=== PATIENT | female | born 1990 | race Caucasian/White ===

== ENCOUNTER 2021-02-26 08:02 | Day surgery (SDC) | payer OTHER ==
[~2021-02-26] VITALS: Ht 162.6 cm; Wt 72.7 kg
--- NOTE | ~2021-02-26 | OP ---
PATIENT NAME: DUNCAN STRATTON MEDICAL RECORD: [id number] :89 [facility]: SURGEON: SORAYA VENTURA MD DATE OF OPERATION: 02/26/2021 PREOPERATIVE DIAGNOSIS: in progress/incomplete . POSTOPERATIVE DIAGNOSIS: in progress/incomplete . PROCEDURE: Suction dilation and curettage. ANESTHESIA: General. IV FLUID: Per anesthesia record. SPECIMENS: Included endometrial curettings/products of conception. FINDINGS: 1. Grossly normal-appearing external genitalia and open cervix. 2. Obvious return of products of conception on suction and C. COMPLICATIONS: None apparent. ESTIMATED BLOOD LOSS: 100 cc. DESCRIPTION OF PROCEDURE: The patient was taken to the operating room where general anesthesia was achieved without difficulty. The patient was then prepped and draped in normal sterile fashion in the dorsal lithotomy position in the [facility]. At this point, the patient was prepped and draped and the bladder was drained of approximately 50 cc of clear yellow urine. At this point, a speculum was placed into the vagina and the cervix was grasped on its anterior lip with a single tooth tenaculum. The patient was found to be significantly dilated and the patient was further dilated to approximately 9 mm. At this point, an 8 mm straight suction curette was placed into the uterus without difficulty and visual return of products of conception was noted. Three passes were performed and then #1 curette was used to gently feel and for any further products of conception, gentle curettage was performed with return of several small pieces of products of conception. A last pass was performed with the #8 suction curette with minimal return of blood or products of conception. Hemostasis was noted to be well controlled and a single tooth tenaculum was removed. No bleeding from the tenaculum site was noted. Speculum was removed and the patient was transferred to postanesthesia recovery stable without incident. TRANSINT:[id number] Voice Confirmation ID: [id number] DOCUMENT ID: [id number] SORAYA VENTURA MD CC: [id number] DICTATION DATE: 03/24/21516 INDUCTION COORDINATION ENGINEER: 03/24/21 0734 [facility] 02/26/21 [id number] [place] [address]
[2021-02-26 08:31] LABS: BASOPHILS 0.1 % (0-2); EOSINOPHILS 0 % (0-7); HEMATOCRIT 29.4 % (36.0-48.0); IMMATURE GRANULOCYTES 0.1 % (0-5); LYMPHOCYTE ABS# 1.89 10x3/uL (1.18-3.74); LYMPHOCYTES 13.6 % (15-50); MCH 24.6 pg (26.0-34.0); MCHC 30.6 g/dL (31.0-37.0); MCV 80.3 fL (80.0-100.0); MEAN PLATELET VOLUME 8.5 fL (7.4-10.4); MONOCYTES 5.5 % (2-11); NEUTROPHIL ABS# 11.23 10x3/uL (1.56-6.13); NEUTROPHILS 80.7 % (40-80); PLATELET COUNT 377 10x3/uL (130-400); RBC 3.66 10x6/uL (4.00-5.40); RDW 13.6 % (11.5-14.5); WBC 13.9 10x3/uL (4.8-10.8)
[2021-02-26 08:43] LABS: CALC OSMOLALITY 273 mosm/kg (275-300); CALCIUM 9.4 mg/dL (8.5-10.1); CARBON DIOXIDE 23.6 mmol/L (21.0-32.0); CHLORIDE - SERUM 101 mmol/L (98-107); CREATININE - SERUM 0.9 mg/dL (0.6-1.3); GLUCOSE 123 mg/dL (74-106); POTASSIUM - SERUM 3.6 mmol/L (3.5-5.1); SODIUM 136 mmol/L (136-145); UREA NITROGEN 14 mg/dL (7-18); eGFR NON AFRICAN AMERICAN 77 mL/min (90-120)
[2021-02-26 08:54] LABS: ALKALINE PHOSPHATASE 70 U/L (30-120); ALT (SGPT) 18 U/L (10-68); BILIRUBIN - TOTAL 0.35 mg/dL (0.2-1.3); HCG - QUANTITATIVE (MATERNAL) 23 mIU/mL; HCG SERUM POSITIVE (NEGATIVE); PROTEIN - SERUM 7.6 g/dL (6.4-8.2)
[2021-02-26 09:32] LABS: BILIRUBIN NEGATIVE (NEGATIVE); KETONE SMALL mg/dL (NEGATIVE); NITRITE NEGATIVE (NEGATIVE)
[2021-02-26 09:34] LABS: BACTERIA FEW HPF (NONE SEEN); SQUAMOUS EPITHELIAL RARE HPF (0-4); WHITE CELLS - URINE RARE HPF (0-4)
--- NOTE | 2021-02-26 12:33 | NUR ---
OPA IN AIRWAY ON ADMIT
--- NOTE | 2021-02-26 12:40 | NUR ---
DR VENTURA CALLS. ORDER RECEIVED TO TRANSFUSE ONE UNIT PACKED RBC'S.
--- NOTE | 2021-02-26 12:50 | NUR ---
ROOM CHANGE @[id number] WAITING ON CLEANING
[2021-02-26 13:16] VITALS: BP 96/60
[2021-02-26 13:19] VITALS: Ht 162.6 cm; Wt 72.7 kg
--- NOTE | 2021-02-26 13:23 | NUR ---
RECEIVED BY BED FROM RECOVERY ROOM, PT IS AWAKE AND ALERT, RATES PAIN AT 0/10. VSS CHARTED TO FLOWSHEET. IV TO L FOREARM INFUSING NS AT 125ML/HR VIA PUMP. DENIES NAUSEA AND REQUEST DR PEPPER TO DRINK. SIDE RAILS UP X 2 WITH CALL LIGHT IN REACH.
--- NOTE | 2021-02-26 13:45 | NUR ---
PT UP TO VOID WITH LITTLE ASSISTANCE NEEDED. LARGE CUP OF ICE WITH DR GARAY PROVIDED REQUESTED. DICTAPHONE MECHANIC AT BEDSIDE FOR BLOOD DRAW.
[2021-02-26 15:50] VITALS: BP 103/61
--- NOTE | 2021-02-26 15:50 | NUR ---
1ST UNIT OF PRBC VERIFIED AT BEDSIDE WITH Jacklyn GREEN RN. STARTED AT 75ML/HR FOR INITIAL 50CC, THIS RN REMAINS AT BEDSIDE.
--- NOTE | 2021-02-26 16:08 | NUR ---
PT DENIES PAIN OR DISCOMFORT. VSS. TRANSFUSION RATE INCREASED TO 200ML/HR. CALL LIGHT IN REACH WITH SIDE RAILS UP X 2.
--- NOTE | 2021-02-26 16:38 | NUR ---
PT TALKING WITH FRIEND AT BEDSIDE. DENIES PAIN OR DISCOMFORT. VSS. LARGE CUP OF ICE WATER PROVIDED REQUESTED. TRANSFUSION CONTINUE TO INFUSE VIA PUMP. CALL LIGHT IN REACH.
--- NOTE | 2021-02-26 17:30 | NUR ---
TRANSFUSION COMPLETED AND FLUSH STARTED. PT RATES PAIN AT 0/10. VERIFIED WITH DR VENTURA ABOUT DIET, DIETARY CALLED FOR REGULAR DIET TRAY.
--- NOTE | 2021-02-26 17:40 | NUR ---
FLUSH COMPLETED, IV SALINE LOCKED. PT UP TO VOID PER HERSELF WITHOUT COMPLAINTS.
--- NOTE | 2021-02-26 18:23 | NUR ---
CBC DRAWN PER THIS RN. PT SITTING UP IN BED LAUGHING WITH FRIEND AT BEDSIDE. RATES PAIN AT 0/10.
[2021-02-26 18:40] LABS: BASOPHILS 0 % (0-2); EOSINOPHILS 0 % (0-7); HEMOGLOBIN 8.5 g/dL (12-16); LYMPHOCYTES 9.3 % (15-50); MCH 25.3 pg (26.0-34.0); MCHC 31.5 g/dL (31.0-37.0); MCV 80.4 fL (80.0-100.0); MEAN PLATELET VOLUME 8.9 fL (7.4-10.4); MONOCYTES 0.3 % (2-11); NEUTROPHIL ABS# 5.85 10x3/uL (1.56-6.13); NEUTROPHILS 90.4 % (40-80); RBC 3.36 10x6/uL (4.00-5.40); RDW 13.7 % (11.5-14.5)
[2021-02-26 18:41] LABS: PLATELET COUNT 293 10x3/uL (130-400); WBC 6.5 10x3/uL (4.8-10.8)
--- NOTE | 2021-02-26 19:05 | NUR ---
CBC RESULTS REPORTED TO DR VENTURA AT THIS TIME. NEW ORDERS NOTED TO DISCHARGE PT TO HOME TO FOLLOW UP WITH THE CLINIC ON WEDNESDAY. PT MAY TAKE MOTRIN DIRECTED ON THE BOTTLE FOR PAIN.
--- NOTE | 2021-02-26 19:14 | NUR ---
DISCHARGE INSTRUCTIONS PROVIDED TO PATIENT AT THIS TIME. PT VERBALIZES UNDERSTANDING AND WILL CALL THE CLINIC TOMORROW TO MAKE A FOLLOW UP APPT FOR WEDNESDAY. IV D/C'D WITHOUT COMPLICATIONS.
--- NOTE | 2021-02-26 19:25 | NUR ---
PT LEAVING AMBULATORY TO HOME IN STABLE CONDITION WITH HER FRIEND.
== END 2021-02-26 19:30 | disposition home or self-care (01) ==
LOC: D.ER 08:02 → D.OPS 08:02 → EDSTATUS 10:48 → D.LD 12:35 → D.OPS 19:30
PROVIDERS: Family Medicine; ATTEND Obstetrics & Gynecology
DX: O03.4 Incomplete spontaneous abortion without complication (principal)

== ENCOUNTER → 2021-05-08 13:36 | Outpatient (CLI) | payer OTHER ==
[2021-02-26 13:19] VITALS: BMI 27.5
[~2021-05-08 13:36] MED LIST: SPRINTEC 28 DA1 EAC1
[2021-05-08 13:40] LABS: BASOPHILS 0.5 % (0-2); EOSINOPHILS 1.3 % (0-7); HEMATOCRIT 28.3 % (36.0-48.0); HEMOGLOBIN 8.6 g/dL (12-16); LYMPHOCYTES 26.2 % (15-50); MCHC 30.6 g/dL (31.0-37.0); MCV 63.4 fL (80.0-100.0); MEAN PLATELET VOLUME 7.6 fL (7.4-10.4); MONOCYTES 5.8 % (2-11); NEUTROPHILS 66.2 % (40-80); RBC 4.46 10x6/uL (4.00-5.40); RDW 18.4 % (11.5-14.5); WBC 9.1 10x3/uL (4.8-10.8)
[2021-05-08 13:41] LABS: MCH 19.4 pg (26.0-34.0); PLATELET COUNT 361 10x3/uL (130-400)
== END | disposition home or self-care (01) ==
LOC: D.LABREF 13:36
PROVIDERS: ATTEND Obstetrics & Gynecology
DX: N92.0 Excessive and frequent menstruation with regular cycle (principal)

== ENCOUNTER 2021-05-09 11:11 | Observation (INO) | payer OTHER ==
[2021-05-09] VITALS (9 sets, daily range): BP systolic 93–111; BP diastolic 55–64
[~2021-05-09] VITALS: Ht 162.6 cm; Wt 67.3 kg
[2021-05-09 12:32] LABS: BASOPHILS 0.7 % (0-2); EOSINOPHILS 2.2 % (0-7); HEMATOCRIT 28.1 % (36.0-48.0); HEMOGLOBIN 8.7 g/dL (12-16); MCHC 30.7 g/dL (31.0-37.0); MCV 63.1 fL (80.0-100.0); MEAN PLATELET VOLUME 7.2 fL (7.4-10.4); NEUTROPHILS 58.1 % (40-80); PLATELET COUNT 365 10x3/uL (130-400); RBC 4.46 10x6/uL (4.00-5.40); RDW 18.4 % (11.5-14.5); WBC 7.5 10x3/uL (4.8-10.8)
[2021-05-09 12:34] LABS: MCH 19.4 pg (26.0-34.0)
[2021-05-09 12:47] LABS: CALC OSMOLALITY 275 mosm/kg (275-300); CALCIUM 8.6 mg/dL (8.5-10.1); CHLORIDE - SERUM 104 mmol/L (98-107); CREATININE - SERUM 0.7 mg/dL (0.6-1.3); GLUCOSE 87 mg/dL (74-106); POTASSIUM - SERUM 3.8 mmol/L (3.5-5.1); SODIUM 138 mmol/L (136-145); UREA NITROGEN 15 mg/dL (7-18); eGFR NON AFRICAN AMERICAN > 90 mL/min (90-120)
[2021-05-09 13:08] LABS: APTT 25.1 SECONDS (22.8-39.4); INR 1.05 (0.85-1.17); PROTIME 12.7 SECONDS (11.6-15.0)
--- NOTE | 2021-05-09 15:14 | NUR ---
PT RECEIVED BY WHEELCHAIR FROM ER. TO BATHROOM WITHOUT COMPLAINT OF DIZZINESS OR NAUSEA. DR VENTURA PAGED REQUESTED.
--- NOTE | 2021-05-09 15:20 | NUR ---
ER ADMISSION CALLED TO TRANSFER PT TO LD ROOM.
--- NOTE | 2021-05-09 15:21 | NUR ---
DR VENTURA AT BEDSIDE TALKING WITH PT ABOUT PLAN OF CARE AND WHAT SHE COULD EXPECT.
[2021-05-09] MEDS ORDERED: SPRINTEC 28 DA1 EAC1 (15:57)
--- NOTE | 2021-05-09 15:58 | NUR ---
SURGERY, ANESTHESIA AND BLOOD CONSENTS SIGNED AND WITNESSED. PT DENIES ANY ALLERGIES AND STATES "I TAKE CONTROL PILL AT NIGHT" RATES PAIN AT 2/10 AT THIS TIME, BUT APPEARS TEARFUL, FRIEND REMAINS AT BEDSIDE.
--- NOTE | 2021-05-09 16:08 | NUR ---
PREOP MEDS OF REGLAN AND PEPCID GIVEN IVP ORDERED BY ANESTHESIA, SEE EMAR.
--- NOTE | 2021-05-09 16:10 | NUR ---
OR STRETCH MACHINE OPERATOR TO ROOM, PT TAKEN TO SURGERY BY BED.
--- NOTE | 2021-05-09 16:15 | NUR ---
DR VENTURA CALLED FOR ORDERS. REPORT THAT PT DENIES PAIN AND NO NAUSEA, SHE HAS EATEN REGULAR DIET BUT HAS NOT VOIDED. MAY D/C HOME OR STAY AND SPEAK TO MD JACE DO. MD ASK THAT HE BE NOTIFIED OF HER DECISION.
--- NOTE | 2021-05-09 17:30 | NUR ---
RECEIVED TO ROOM BY BED FROM RECOVERY. SHE IS AWAKE AND ALERT, RATES PAIN AT 0/10 STATES "I'M JUST HUNGRY" DR VENTURA SPOKE WITH HER PRIOR TO SURGERY AND SHE WAS TOLD OK TO EAT WHEN SHE GOT BACK TO HER ROOM, DENIES NAUSEA AT THIS TIME. VSS. SHE IS ABLE TO SIT HER SELF UP IN BED, LARGE CUP OF ICE REQUESTED. HER FRIEND HAS HER SOMETHING TO EAT AND DRINK. CALL LIGHT IN REACH.
--- NOTE | 2021-05-09 18:38 | NUR ---
LARGE CUP OF ICE WATER AND SMALL CUP ICE REQUESTED. EXPLAINED TO PT THAT MD WOULD NOT BE BACK ON UNIT UNTIL LATER TONIGHT AND IF SHE WISHES TO STAY THAT IS NOT A PROBLEM OR SHE CAN DISCHARGE HOME, AND WILL HAVE FOLLOW UP AT CLINIC IN 1-2 WEEKS. TALKING WITH HER FRIEND/FAMILY MEMBER AND WILL NOTIFY NURSE.
--- NOTE | 2021-05-09 19:30 | NUR ---
PAGED DR. VENTURA CONCERNING PT.'S REQUEST TO DISCHARGE. DR. VENTURA RETURNS PAGE. SEE NOTES.
--- NOTE | 2021-05-09 20:00 | NUR ---
1ST UNIT OF PRBC'S PICKED UP BY Denia JONES RN. TO PT.'S BEDSIDE. DISCUSSED SIGNS AND SYMPTOMS OF ALLERGIC REACTION TO BLOOD TRANSFUSION. Denia JONES RN AND Sharla ZHANG RN PERFORM VERIFICATION OF BLOOD PRIOR TO STARTING INFUSION. ALL ARE MATCHING. PT. DENIES ALLERGIES OF ANY KIND. THIS RN REMAINS AT BEDSIDE FOR THE FIRST 5 MINUTES OF INFUSION AND PT. DENIES ANY REACTION AT THIS TIME. CALL LIGHT IN REACH. INSTRUCTED PT. TO CALL ME IMMEDIATELY IF SHE STARTS FEELING ANYTHING AND THAT I WILL BE BACK IN 15 MINUTES TO GET ANOTHER SET OF VITALS.
--- NOTE | 2021-05-09 20:47 | NUR ---
pt. press set up person light. upon entering room pt. reports "I USED THE BATHROOM AGAIN". 300 MLS CLEAR YELLOW URINE EMPTIED FROM NUNS CAP. PT. DENIES ANY FURTHER NEEDS AT THIS TIME. INSTRUCTED PT. THAT SINCE SHE IS RECEIVING BLOOD I WOULD RATHER HER CALL FOR ASSISTANCE UP TO THE BATHROOM. PT. VERBALIZES UNDERSTANDING. WILL CONT. TO MONITOR.
--- NOTE | 2021-05-09 21:00 | NUR ---
PT. CONTINUES TO DENY ANY TYPE OF REACTION TO BLOOD TRANSFUSION. INCREASED 1ST UNIT PRBC'S TO 175 ML/HR. WILL CONT. TO MONITOR.
--- NOTE | 2021-05-09 21:31 | NUR ---
ASSISTED PT. UP TO BATHROOM AT THIS TIME.
--- NOTE | 2021-05-09 21:42 | NUR ---
1 UNIT OF PRBC'S COMPLETED. CLAMPED IV TUBING TO BLOOD AND OPENED NS SIDE. NS INFUSING AT 175 ML/HR FOR 100 ML BOLUS TO CLEAR IV TUBING LINE. VITALS TAKEN. SEE GRAPH.
--- NOTE | 2021-05-09 22:00 | NUR ---
NEW BLOOD TRANSFUSION TUBING PLACED AND NS RUNNING AT 50 ML/HR
--- NOTE | 2021-05-09 22:03 | NUR ---
PAGED DR. VENTURA AT PT.'S REQUEST FOR ORDERS FOR "SOMETHING TO HELP ME SLEEP"
--- NOTE | 2021-05-09 22:18 | NUR ---
DR. VENTURA CALLS UNIT. REPORT GIVEN OF PT.'S REQUEST OF FOR "SOMETHING TO HELP HER SLEEP". ORDERS REC.
--- NOTE | 2021-05-09 22:30 | NUR ---
Denia JONES RN AND Sharla ZHANG RN VERIFY 2ND UNIT OF PRBC'S AT PT.'S BEDSIDE. 20 G. IV CATH IN RIGHT HAND INFUSING WITHOUT DIFFICULTY AND WITH NO PAIN PER PT.
--- NOTE | 2021-05-09 22:31 | NUR ---
2nd UNIT OF PRBC'S INITIATED AT 125 ML/HR PER MD ORDERS. THIS RN REMAINS AT BEDSIDE.
--- NOTE | 2021-05-09 22:32 | NUR ---
AMBIEN 5 MG (1) TABLET ADMINISTERED PER MD ORDERS AND PT.'S REQUEST FOR SOMETHING TO HELP HER SLEEP.
--- NOTE | 2021-05-09 22:44 | NUR ---
PT. CONTINUES TO DENY ANY SIGNS OR SYMPTOMS OF BLOOD TRANSFUSION REACTION. 2ND UNIT INCREASED TO 150 ML/HR. INSTRUCTED PT. TO CALL FOR ANY ISSUES. CALL LIGHT WITHIN REACH. SIDE RAILS UP X 2. WILL CONT. TO MONITOR.
--- NOTE | 2021-05-09 23:22 | NUR ---
PT. MEDICATED WITH NORCO 10/325 MG 1 TAB AND MOTRIN 600 MG 1 TAB FOR "CRAMPING" THAT PT. RATES AT "2" ON 0-10 SCALE. NO VAGINAL BLEEDING NOTED AT THIS TIME. INSTRUCTED PT. TO NOT GET UP TO BATHROOM WITHOUT MY ASSISTANCE DUE TO HER BP BEING LOW. PT. VERBALIZES UNDERSTANDING. PT. CONTINUES TO DENY ANY SIGNS OF SYMPTOMS OF BLOOD TRANSFUSION REACTION. UPON PT. ROLLING AROUND IN BED TO GET COMFORTABLE, PT.'S PULSE GOES UP TO 68 BUT SLOWS SOON SHE GETS STILL. WILL CONT. TO MONITOR.
--- NOTE | 2021-05-10 00:19 | NUR ---
PT. RESTING WITH EYES CLOSED IN RIGHT SIDE LYING POSITION. NO SIGNS OF DISTRESS NOTED. RESP. ARE EVEN AND UNLABORED. WILL CONT. TO MONITOR. 2ND UNIT OF PRBC'S ALMOST COMPLETE.
--- NOTE | 2021-05-10 00:30 | NUR ---
2ND UNIT OF PRBC'S COMPLETED. VITALS TAKEN AND STABLE. INSTRUCTED PT. THAT SHE STILL NEEDS TO CALL BEFORE GETTING UP AND THAT I NEED TO LEAVE HER PULSE OX ON FOR NOW. PT. VERBALIZES UNDERSTANDING. BLOOD CLAMPED AND NS UNCLAMPED AND SET FOR 100 MLS TO FINISH WHAT IS IN IV TUBING.
--- NOTE | 2021-05-10 00:55 | NUR ---
PT. REPORTS "I THINK I'LL GO AHEAD AND GO SINCE YOU'RE IN HERE" WHEN ASKED IF SHE NEEDS TO USE THE RESTROOM. 20 G. IV IN RIGHT HAND SALINE LOCKED AT THIS TIME. PT. UP OUT OF BED QUICKLY. PT. VOIDED 400 MLS PALE YELLOW URINE INTO NUNS CAP. EMPTIED AND REPLACED AT THIS TIME. INSTRUCTED PT. THAT I WILL NEED HER TO CONTINUE TO KEEP HER PULSE OX ON. PT. VERBALIZES UNDERSTANDING. DENIES ANY QUESTIONS OR CONCERNS AT THIS TIME. WILL CONT. TO MONITOR.
[2021-05-10 03:30] VITALS: BP 99/55
--- NOTE | 2021-05-10 03:30 | NUR ---
PT. AWAKENS EASILY WITH VERBAL STIMULATION. VITALS TAKEN AND STABLE. PT. REPORTS "SOME MILD CRAMPING" AND RATES PAIN AT "4" ON 0-10 SCALE "EVERY NOW AND THEN". NORCO 10/325 MG 1 TAB ADMINISTERED ORALLY PER MD ORDERS AND PT. REPORT OF PAIN. INQUIRED WITH PT. IF THERE IS ANYTHING I CAN BRING HER AND PT. REPORTS "NO, IM OK, JUST TIRED". INSTRUCTED PT. TO CALL IF SHE NEEDS ANYTHING AND I WILL CHECK BACK LATER BUT THAT IF SHE IS SLEEPING AT THAT TIME THEN I WILL LEAVE HER BE. PT. VERBALIZES UNDERSTANDING AND DENIES FURTHER QUESTIONS OR CONCERNS. WILL CONT. TO MONITOR.
--- NOTE | 2021-05-10 06:05 | NUR ---
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 250 mls clear yellow urine emptied from nuns cap. pt. denies pain or needs at this time. Will cont. to monitor.
[2021-05-10 07:30] VITALS: BP 105/72
--- NOTE | 2021-05-10 07:30 | NUR ---
PATIENT ASSESSMENT COMPLETED AT BEDSIDE. PATIENT DENIES PAIN OR NEEDS AT THIS TIME. VSS. RIGHT HAND PIV SALINE'D LOCKED. DISCUSSED WITH PATIENT RESTING HEART RATE. PATIENT DENIES BEING A RUNNER. WHEN PATIENT MOVES, HEART RATE DOES IMPROVE TO OVER 60BPM. SIDE RAILS UP X2, BED IN LOW POSITION, CALL LIGHT WITHIN REACH.
[2021-05-10 09:07] VITALS: Ht 162.6 cm; Wt 67.3 kg
--- NOTE | 2021-05-10 10:00 | NUR ---
PATIENT GIVEN COPY OF DISCHARGE INSTRUCTIONS INCLUDING DISCHARGE EDUCATION. PATIENT INSTRUCTED TO CALL CLINIC ON WEDNESDAY TO DISCUSS FOLLOW UP APPOINTMENT. PATIENT VERBALIZED UNDERSTANDING OF INSTRUCTIONS GIVEN. PIV REMOVED USING ASPETIC TECHNIQUES. PATIENT TOLERATED WELL. PATIENT DISCHARGED HOME IN STABLE CONDITION TO SELF CARE.
--- NOTE | 2021-05-11 16:32 | MORECARE ---
CASE MANAGEMENT DISCHARGE SUMMARY PATIENT: DUNCAN STRATTON UNIT: [id number] ADM DATE: 05/09/21 AGE: 30 : 88 SEX: F [facility] AUTHOR: GRAHAM,DOC PHYSICIAN: REFERRING PHYSICIAN: SORAYA VENTURA MD DATE OF SERVICE: 05/11/21 Case Management Discharge Planning Summary DCP REVIEW SUMMARY ANTICIPATED D/C DATE: EXPECTED LOS : CASE STATUS: DCP Initiated INITIAL REVIEW: 05/09/2021 INITIAL REVIEWER: Megan Rosado FINAL DISCHARGE DISPOSITION: : FINAL REVIEWER: FINAL REVIEW DATE: DCP [employer] QUESTION: ANSWER : PATIENT: DUNCAN STRATTON ENCOUNTER: [id number] MEDICAL RECORD#: [id number] ADMISSION DATE: 05/09/2021 DISCHARGE DATE: 05/10/2021 ATTENDING MD: SORAYA HALE : AGE: 30 MARITAL STATUS: S DC PLAN ID: [id number] FACILITY: [facility] PRINTED ON: 05/11/21 16:32 CT All edits/amendments must be made on the electronic document DICTATION DATE: 05/11/21 163 RISK ENGINEER: DM 05/11/21 1632 RPT#: [id number] DC DATE:05/10/21 STATUS: DIS IN [facility] [address] [place] [address] END OF REPORT
== END 2021-05-10 10:06 | disposition home or self-care (01) ==
LOC: D.ER 11:11 → D.LD 15:39 → OBSVTIME 15:39 → D.LD 15:39
PROVIDERS: Emergency Medicine; ADMIT Obstetrics & Gynecology; ATTEND Obstetrics & Gynecology
DX: N92.0 Excessive and frequent menstruation with regular cycle (principal); D64.9 Anemia, unspecified